=== PATIENT | male | born 1960 | race Asian ===

== ENCOUNTER 2017-10-26 19:12 | Inpatient (IN) | payer OTHER ==
[~2017-10-26] VITALS: Ht 182.9 cm; Wt 89.2 kg
[2017-10-26 19:28] VITALS: Ht 182.9 cm; Wt 89.2 kg
[2017-10-26 20:25] LABS: BASOPHIL % 0.7 % (0-2); PLATELET COUNT 186 x10^3mcL (130-400); RED CELL DISTRIBUTION WIDTH 13.5 % (11.5-14.5)
[2017-10-26 20:51] LABS: microscopic required? YES; urine erythrocyte 1+ (NEGATIVE)
[2017-10-26 21:00] LABS: AMPHETAMINE QUAL UR NONE DETECTED (See below)
[2017-10-26 21:43] LABS: CALCIUM 8.7 mg/dL (8.5-10.1); CARBON DIOXIDE 23.1 mmol/L (21-32); CREATININE SERUM 1.7 mg/dL (0.7-1.3); POTASSIUM SERUM 3.4 mmol/L (3.5-5.1)
[2017-10-26 21:50] LABS: ALBUMIN 3.7 g/dL (3.4-5.0); BILIRUBIN TOTAL 0.7 mg/dL (0.20-1.00); MAGNESIUM 1.8 mg/dL (1.8-2.4); TOTAL PROTEIN, SERUM 6.9 g/dL (6.4-8.2)
[2017-10-26] MEDS ORDERED: TOPROL XL25 MG PO (22:28)
[2017-10-26] MEDS ORDERED: ENTRESTO1 TA2 PO (22:29)
[2017-10-26] MEDS ORDERED: XARELTO10 M1 (22:29)
[2017-10-26 23:48] LABS: CHOLESTEROL 165 mg/dL (<200); CHOLESTEROL/HDL RATIO 4.7; HDL CHOLESTEROL 35 mg/dL (40-60); PHOSPHOROUS 3.6 mg/dL (2.5-4.9); TRIGLYCERIDES 443 mg/dL (<150)
[2017-10-26 23:58] LABS: FREE T4 1.3 ng/dL (0.76-1.46); FREE THYROXINE INDEX 3.3 ug/dL (1.4-4.5); T4(THYROXINE) 9.1 ug/dL (4.7-13.3)
[2017-10-27 00:23] LABS: T3 TOTAL 0.85 ng/mL
[2017-10-27 00:24] VITALS: BP 139/86
[2017-10-27] MEDS ORDERED: MYRBETRIQ25 MG PO (03:14)
[2017-10-27] MEDS ORDERED: ULORIC40 M1 PO (03:15)
[2017-10-27 05:23] VITALS: BP 128/80
[2017-10-27 08:10] LABS: BASOPHIL % 0.6 % (0-2); PLATELET COUNT 196 x10^3mcL (130-400); RED CELL DISTRIBUTION WIDTH 13.4 % (11.5-14.5)
[2017-10-27 08:44] VITALS: BP 130/84
[2017-10-27 08:49] LABS: CALCIUM 8.6 mg/dL (8.5-10.1); CARBON DIOXIDE 22.8 mmol/L (21-32); CREATININE SERUM 1.4 mg/dL (0.7-1.3); POTASSIUM SERUM 4.4 mmol/L (3.5-5.1)
[2017-10-27 15:08] VITALS: BP 130/84
== END 2017-10-27 15:45 | disposition home or self-care (01) | DRG 308 ==
LOC: ED 19:12 → DU 22:34
PROVIDERS: Emergency Medicine; Family Medicine
DX: R00.2 Palpitations (principal); N17.0 Acute kidney failure with tubular necrosis; I95.2 Hypotension due to drugs; T46.5X5A Adverse effect of other antihypertensive drugs, initial encounter; I50.9 Heart failure, unspecified; I42.7 Cardiomyopathy due to drug and external agent; T45.1X5S Adverse effect of antineoplastic and immunosuppressive drugs, sequela; R31.9 Hematuria, unspecified; Z68.26 Body mass index [BMI] 26.0-26.9, adult; Z79.01 Long term (current) use of anticoagulants; Z85.72 Personal history of non-Hodgkin lymphomas; Z92.21 Personal history of antineoplastic chemotherapy; Y92.009 Unspecified place in unspecified non-institutional (private) residence as the place of occurrence of the external cause
CPT/HCPCS: 83880; 84439; C9113; Q0092